=== PATIENT | female | born 1970 | race Caucasian/White ===

== ENCOUNTER 2019-07-07 21:00 | Emergency (ER) | payer MEDICAID ==
[~2019-07-07] VITALS: Ht 157.5 cm; Wt 58.1 kg
--- NOTE | 2019-07-07 21:05 | ED.ADGEN ---
Past History Past Medical History: Alcoholism, Anxiety, Bipolar, Depression, Other Smoking: Cigarettes Adult General Chief Complaint Chief Complaint "... I moved my encounter my mother.... And we are not getting along I'm not getting along my older son lives with her mother... I started drinking enteral heavily and having suicidal thoughts... Thoughts that I will hurt my mother... I have a long history depression and some previous suicide attempts... I was thinking about taking an overdose of aspirin tonight... HPI HPI Patient is a 48 year old female who presents with above hx and complaints depression, anxiety, suicidal ideation. Patient admits to drinking alcohol heavily tonight. Patient has had multiple hospital admissions for suicidal ideation and depression. Has had problems since age teenager. Patient denies any legal problems. Patient denies any change in her psych meds. Patient has followed at the [facility] for counseling and treatment of her chronic depression and anxiety. Review of Systems Review of Systems Constitutional: Denies fever or chills [] Eyes: Denies change in visual acuity, redness, or eye pain [] HENT: Denies nasal congestion or sore throat [] Respiratory: Denies cough or shortness of breath [] Cardiovascular: No additional information not addressed in HPI [] GI: Denies abdominal pain, nausea, vomiting, bloody stools or diarrhea [] : Denies dysuria or hematuria [] Musculoskeletal: Denies back pain or joint pain [] Integument: Denies rash or skin lesions [] Neurologic: Denies headache, focal weakness or sensory changes [] Endocrine: Denies polyuria or polydipsia [] All other systems were reviewed and found to be within normal limits, except as documented in this note. Family History Family History Noncontributory Current Medications Current Medications Current Medications Medications (Trade) Dose Ordered Sig/Geremias Start Time Stop Time Status Last Admin Dose Admin Lactated Ringer's 1,000 ml @ 1,000 mls/hr Q1H 07/07/19 21:30 07/07/19 22:29 DC 07/07/19 22:22 1,000 MLS/HR Multivitamins/ Minerals 10 ml/ Folic Acid 1 mg/ Thiamine HCl 100 mg/Lactated Ringer's 1,011.2 ml @ 1,011.2 mls/hr 1X ONCE 07/07/19 22:00 07/07/19 22:59 DC 07/07/19 22:22 1,011.2 MLS/HR Allergies Allergies Allergies Coded Allergies Type Severity Reaction Last Updated Verified No Known Drug Allergies 07/07/19 No Physical Exam Physical Exam Constitutional: In acute emotional distress, appears intoxicated. HENT: Normocephalic, atraumatic, bilateral external ears normal, oropharynx moist, no oral exudates, nose normal. []Poor dentition. Eyes: PERRLA, EOMI, conjunctiva normal, no discharge. Glasses Neck: Normal range of motion, no tenderness, supple, no stridor. [] Cardiovascular: Tachycardia Heart rate regular rhythm, no murmur [] Lungs & Thorax: Bilateral breath sounds equal at apexes with a few scattered w heezes on auscultation [] Abdomen: Bowel sounds normal, soft, no tenderness, no masses, no pulsatile masses. [] Skin: Warm, dry, no erythema, no rash. [] Back: No tenderness, no CVA tenderness. [] Extremities: No tenderness, no cyanosis, no clubbing, ROM intact, no edema. [] Neurologic: Alert and oriented X 3, normal motor function, normal sensory function, no focal deficits noted. []DTRs +2 patella and brachial. Slightly wide gait. Slightly dizziness coordinated Psychologic: Affect anxious, judgement normal, mood depressed Current Patient Data Vital Signs Vital Signs Date Time Temp Pulse Resp B/P (MAP) Pulse Ox O2 Delivery O2 Flow Rate FiO2 07/08/19 03:32 72 18 142/90 (107) 95 Room Air 07/07/19 21:10 97.6 Lab Results Laboratory Tests Test 07/07/19 21:50 07/07/19 22:13 White Blood Count 9.0 x10^3/uL (4.0-11.0) Red Blood Count 4.46 x10^6/uL (3.50-5.40) Hemoglobin 13.8 g/dL (12.0-15.5) Hematocrit 40.7 % (36.0-47.0) Mean Corpuscular Volume 91 fL (79-100) Mean Corpuscular Hemoglobin 31 pg (25-35) Mean Corpuscular Hemoglobin Concent 34 g/dL (31-37) Red Cell Distribution Width 13.4 % (11.5-14.5) Platelet Count 391 x10^3/uL (140-400) Neutrophils (%) (Auto) 38 % (31-73) Lymphocytes (%) (Auto) 53 % (24-48) H Monocytes (%) (Auto) 6 % (0-9) Eosinophils (%) (Auto) 2 % (0-3) Basophils (%) (Auto) 1 % (0-3) Neutrophils # (Auto) 3.4 x10^3uL (1.8-7.7) Lymphocytes # (Auto) 4.8 x10^3/uL (1.0-4.8) Monocytes # (Auto) 0.5 x10^3/uL (0.0-1.1) Eosinophils # (Auto) 0.2 x10^3/uL (0.0-0.7) Basophils # (Auto) 0.1 x10^3/uL (0.0-0.2) Prothrombin Time 9.8 SEC (9.4-11.4) Prothrombin Time INR 0.9 (0.9-1.1) Activated Partial Thromboplast Time 25 SEC (23-33) Urine Collection Type Unknown Urine Color Yellow Urine Clarity Clear Urine pH 6.0 Urine Specific [place] <=1.005 Urine Protein Neg (NEG-TRACE) Urine Glucose (UA) Neg mg/dL (NEG) Urine Ketones (Stick) Neg mg/dL (NEG) Urine Blood Neg (NEG) Urine Nitrite Neg (NEG) Urine Bilirubin Neg (NEG) Urine Urobilinogen Dipstick 0.2 mg/dL (0.2 mg/dL) Urine Leukocyte Esterase Neg (NEG) Urine RBC Occ /HPF (0-2) Urine WBC 1-4 /HPF (0-4) Urine Squamous Epithelial Cells Few /LPF Urine Transitional Epithelial Cells Few /LPF Urine Bacteria 0 /HPF (0-FEW) Sodium Level 136 mmol/L (136-145) Potassium Level 3.8 mmol/L (3.5-5.1) Chloride Level 98 mmol/L (98-107) Carbon Dioxide Level 21 mmol/L (21-32) Anion Gap 17 (6-14) H Blood Urea Nitrogen 6 mg/dL (7-20) L Creatinine 0.8 mg/dL (0.6-1.0) Estimated GFR (Cockcroft-Gault) 77.2 Glucose Level 89 mg/dL (70-99) Calcium Level 8.5 mg/dL (8.5-10.1) Magnesium Level 1.9 mg/dL (1.8-2.4) Total Bilirubin 0.1 mg/dL (0.2-1.0) L Direct Bilirubin 0.1 mg/dL (0.0-0.2) Aspartate Amino Transferase (AST) 24 U/L (15-37) Alanine Aminotransferase (ALT) 26 U/L (14-59) Alkaline Phosphatase 41 U/L (46-116) L Troponin I Quantitative < 0.017 ng/mL (0-0.055) Total Protein 6.6 g/dL (6.4-8.2) Albumin 3.5 g/dL (3.4-5.0) Lipase 482 U/L (73-393) H Salicylates Level 2.5 mg/dL (2.8-20.0) L Salicylate Last Dose Date Unknown Salicylate Last Dose Time Unknown Urine Opiates Screen Neg (NEG) Urine Methadone Screen Neg (NEG) Acetaminophen Level < 2 mcg/mL (10-30) L Acetaminophen Last Dose Date Unknown Acetaminophen Last Dose Time Unknown Urine Barbiturates Neg (NEG) Urine Phencyclidine Screen Neg (NEG) Urine Amphetamine/Methamphetamine Neg (NEG) Urine Benzodiazepines Screen Neg (NEG) Urine Cocaine Screen Neg (NEG) Urine Cannabinoids Screen Neg (NEG) Ethyl Alcohol Level 149 mg/dL (0-10) H Urine Ethyl Alcohol Pos (NEG) POC Urine HCG, Qualitative hcg negative (Negative) EKG EKG My interpretation EKG shows a sinus rhythm at 93 bpm. No acute morphology[] Radiology/Procedures Radiology/Procedures [][place] [address] IMAGING REPORT Signed PATIENT: EMANUEL PHAM AACCOUNT: [id number] : 1970 LOCATION: ER AGE: 48 SEX: F EXAM STATUS: REG ER ORD. PHYSICIAN: HIGINIO MCMAHON MD REASON: Shortness of air, suicide.Hx smoking, meth PROCEDURE: PORTABLE CHEST 1V Study: PORTABLE CHEST 1V Indication: Shortness of air. Comparison: None. Findings: No lobar infiltrate, pleural effusion or pneumothorax. Unremarkable cardiomediastinal silhouette and hilar structures. The partially evaluated osseous structures and upper abdomen are unremarkable. Impression: No acute radiographic abnormality of the chest. Electronically signed by: MARK CASTANEDA MD (07/07/2019 10:33 PM) [facility] DICTATED AND SIGNED BY: MARK CASTANEDA MD DATE: 07/07/19 0068 CC: HIGINIO MCMAHON MD; PCP,NO ~ Course & Med Decision Making Course & Med Decision Making Pertinent Labs and Imaging studies reviewed. (See chart for details) See Tele psych. report. Still awaiting placement. 0030 hrs. Asleep. 01 22-sleeping Pt. sleeping. Dr. Simmons at [][facility] accepts pt. in transfer. 0300 hrs. Final Impression Final Impression 1. Depression 2. Suicidal ideation 3. Anxiety 4. Alcohol abuse 149 5. Mild Elevation Lipase 482 6. Mild Elevation Lymphocytes 53 Dragon Disclaimer Dragon Disclaimer This electronic medical record was generated, in whole or in part, using a voice recognition dictation system. Dragon Disclaimer This chart was dictated in whole or in part using Voice Recognition software in a busy, high-work load, and often noisy Emergency Department environment. It may contain unintended and wholly unrecognized errors or omissions. HIGINIO MCMAHON MD Jul 07, 2019 21:05
--- NOTE | 2019-07-07 21:27 | EKG ---
[address] [address] Test Date: 2019-07-07 Test Time: 21:26:02 Pat Name: EMANUEL PHAM Department: Room: Gender: F Chemist Organic: : 1970 Requested By: HIGINIO MCMAHON Order Number: [id number] Reading MD: Measurements Intervals [place] Rate: 93 P: 47 MD: 130 QRS: 81 QRSD: 88 T: 57 QT: 374 QTc: 468 Interpretive Statements SINUS RHYTHM NORMAL ECG RI6.01 No previous ECG available for comparison
[2019-07-07] MEDS ORDERED: IV RINGERS SOLUTION,LACTATED 1,000 ML IV SCH (21:30)
[2019-07-07] MEDS ORDERED: MVI, ADULT NO.4 WITH VIT K 10 ML, FOLIC ACID SYRINGE for ER 1 MG, THIAMINE INJ 100 MG i... IV ONE ×4 (22:00)
[2019-07-07 22:17] LABS: BASO # 0.1 x10^3/uL (0.0-0.2); BASO % 1 % (0-3); EOS # 0.2 x10^3/uL (0.0-0.7); EOS % 2 % (0-3); HEMATOCRIT 40.7 % (36.0-47.0); HEMOGLOBIN 13.8 g/dL (12.0-15.5); LYMPH # 4.8 x10^3/uL (1.0-4.8); LYMPH % 53 % (24-48); MEAN CORPUSCULAR HEMOGLOBIN 31 pg (25-35); MEAN CORPUSCULAR HGB CONC 34 g/dL (31-37); MEAN CORPUSCULAR VOLUME 91 fL (79-100); MONO # 0.5 x10^3/uL (0.0-1.1); MONO % 6 % (0-9); NEUT # 3.4 x10^3uL (1.8-7.7); NEUT % 38 % (31-73); PLATELET COUNT 391 x10^3/uL (140-400); RED BLOOD COUNT 4.46 x10^6/uL (3.50-5.40); RED CELL DISTRIBUTION WIDTH 13.4 % (11.5-14.5)
[2019-07-07 22:25] LABS: ETHANOL 149 mg/dL (0-10); SALIC 2.5 mg/dL (2.8-20.0)
[2019-07-07 22:32] LABS: ACETAMIN < 2 mcg/mL (10-30)
--- NOTE | 2019-07-07 22:36 | RAD ---
Study: PORTABLE CHEST 1V Indication: Shortness of air. Comparison: None. Findings: No lobar infiltrate, pleural effusion or pneumothorax. Unremarkable cardiomediastinal silhouette and hilar structures. The partially evaluated osseous structures and upper abdomen are unremarkable. Impression: No acute radiographic abnormality of the chest. Electronically signed by: MARK CASTANEDA MD (07/07/2019 10:33 PM) [facility]
[2019-07-07 22:40] LABS: BARBITURATES NEG (NEG); BENZODIAZEPINES NEG (NEG); CANNABINOIDS NEG (NEG); COCAINE NEG (NEG); METHADONE NEG (NEG); OPIATES NEG (NEG); PHENCYCLIDINE NEG (NEG)
[2019-07-07 22:41] LABS: AMPHETAMINE/METHAMPHETAMINE NEG (NEG)
[2019-07-07 22:43] LABS: ALBUMIN 3.5 g/dL (3.4-5.0); CALCIUM 8.5 mg/dL (8.5-10.1); CREATININE 0.8 mg/dL (0.6-1.0); DIRECT BILIRUBIN 0.1 mg/dL (0.0-0.2); GFR 77.2; MAGNESIUM 1.9 mg/dL (1.8-2.4); POTASSIUM 3.8 mmol/L (3.5-5.1); TOTAL BILIRUBIN 0.1 mg/dL (0.2-1.0); TOTAL PROTEIN 6.6 g/dL (6.4-8.2)
[2019-07-07 22:49] LABS: BACTERIA,URINE 0 /HPF (0-FEW); BILIRUBIN,URINE NEG (NEG); CLARITY,URINE CLEAR; COLOR,URINE YELLOW; GLUCOSE,URINE NEG (NEG); NITRITE,URINE NEG (NEG); RBC,URINE OCC /HPF (0-2); UROBILINOGEN,URINE 0.2 mg/dL (0.2 mg/dL)
[2019-07-07 22:50] LABS: SQUAMOUS EPITHELIAL CELL,UR FEW /LPF
[2019-07-08 03:32] VITALS: BP 142/90
== END 2019-07-08 03:40 | disposition short-term general hospital (02) ==
LOC: ER 21:00
DX: F41.9 Anxiety disorder, unspecified (principal); F31.9 Bipolar disorder, unspecified; F10.20 Alcohol dependence, uncomplicated; R45.851 Suicidal ideations; D72.820 Lymphocytosis (symptomatic); R79.89 Other specified abnormal findings of blood chemistry; F17.210 Nicotine dependence, cigarettes, uncomplicated; Y90.6 Blood alcohol level of 120-199 mg/100 ml
CPT/HCPCS: 36415; 71045; 80048; 80076; 80307; 80329; 81001; 81025; 83690; 83735; 84443; 84484; 85025; 85610; 85730; 93005; 96365; 99285; G0480; J7120; 82003

== ENCOUNTER 2020-01-16 18:37 | Emergency (ER) | payer SELFPAY ==
[~2020-01-16] VITALS: Ht 157.5 cm; Wt 56.8 kg
[2020-01-16] MEDS ORDERED: IV RINGERS SOLUTION,LACTATED 1,000 ML IV SCH (18:51)
--- NOTE | 2020-01-16 18:51 | PHYS DOC ---
Past History Past Medical History: Alcoholism, Anxiety, Bipolar, Depression, Other Past Surgical History: Other Additional Past Surgical Histo: WISDOM TEETH Smoking: Cigarettes Alcohol Use: Occasionally Drug Use: Marijuana, Methamphetamine, Other Adult General Chief Complaint Chief Complaint: "...I having increased thoughts of suicide... I have problems with depression ever since I was teenager and I was recently admitted to [facility]... For depression".. " I attempted suicide once before by taking Aspirin... now I keep having thoughts of [place] [address]...." [facility] HPI Patient is a 49 year old female who presents with above hx and complaints of suicidal ideation. Patient gives history of previous diagnosis of anxiety disorder, bipolar disorder and depression. Patient does have a history of alcohol abuse, marijuana and meth abuse. Patient has been drinking today but states not to excess. Patient reports a recent admission to [facility] for depression thoughts of a 1 month ago. Patient does report that is currently incarcerated and this is causing increased stress, he also relates depression over her friend who recently of lung cancer. No recent travel. No history immunosuppression. Patient denies any overdoses of meds curr ently. Pt. does admit to self medication for her mood swing with ETOH and on occasion Meth. Pt. denies any homicidal ideation. Review of Systems Review of Systems Constitutional: Denies fever or chills [] Eyes: Denies change in visual acuity, redness, or eye pain [] HENT: Denies nasal congestion or sore throat [] Respiratory: Denies cough or shortness of breath [] Cardiovascular: No additional information not addressed in HPI [] GI: Denies abdominal pain, nausea, vomiting, bloody stools or diarrhea [] : Denies dysuria or hematuria [] Musculoskeletal: Denies back pain or joint pain [] Integument: Denies rash or skin lesions [] Neurologic: Denies headache, focal weakness or sensory changes [] Endocrine: Denies polyuria or polydipsia [] All other systems were reviewed and found to be within normal limits, except as documented in this note. Family History Family History Noncontributory current presentation- patient is however evasive about family history Current Medications Current Medications See nursing for home meds Allergies Allergies Allergies Coded Allergies Type Severity Reaction Last Updated Verified No Known Drug Allergies 07/07/19 No Physical Exam Physical Exam Constitutional: Moderate emotional distress, non-toxic appearance. [] HENT: Normocephalic, atraumatic, bilateral external ears normal, oropharynx moist, no oral exudates, nose normal. [] Eyes: PERRLA, EOMI, conjunctiva normal, no discharge. [Glasses Neck: Normal range of motion, no tenderness, supple, no stridor. [] Cardiovascular:Heart rate regular rhythm, no murmur [] Lungs & Thorax: Bilateral breath sounds equal apex scattered wheezes on auscultation [] Abdomen: Bowel sounds normal, soft, no tenderness, no masses, no pulsatile masses. [] Skin: Warm, dry, no erythema, no rash. [] Back: No tenderness, no CVA tenderness. [] Extremities: No tenderness, no cyanosis, no clubbing, ROM intact, no edema. [] Neurologic: Alert and oriented X 3, normal motor function, normal sensory function, no focal deficits noted. []DTRs +2 at patella and brachial. [employer] equal. No drift. Ambulatory without problems. Psychologic: Affect anxious and depressed, judgement normal, mood normal. Does appear to have insight to her psychological state. EKG EKG I interpretation of EKG shows sinus rhythm at 70 bpm. No findings acute STEMI with contralateral changes.[] Radiology/Procedures Radiology/Procedures [] Course & Med Decision Making Course & Med Decision Making Pertinent Labs and Imaging studies reviewed. (See chart for details) Still awaiting tele-psych report 0040 hrs. Tele. Psych. report received 0130 hrs. . Pt. accepted at [facility] - Dr. Bryant accepting. Impression: 1. Suicidal ideation 2. History bipolar disorder 3. History of depression 4. History of anxiety disorder 5. History of alcohol abuse-149 tonight 6. Mild elevation leukocytosis 12.0 7. Aspirin and Tylenol levels-not toxic on initial draws salicylate 1.1 and Acet. <2 (Repeat 1.4 and < 2) 8. Tobacco and marijuana use. [] Dragon Disclaimer Dragon Disclaimer This electronic medical record was generated, in whole or in part, using a voice recognition dictation system. Departure Departure: Disposition: 01 HOME/RESIDENCE PRIOR TO ADM Condition: STABLE Referrals: PCP,NO (PCP) Linnea Disclaimer This chart was dictated in whole or in part using Voice Recognition software in a busy, high-work load, and often noisy Emergency Department environment. It may contain unintended and wholly unrecognized errors or omissions. Dragon Disclaimer This chart was dictated in whole or in part using Voice Recognition software in a busy, high-work load, and often noisy Emergency Department environment. It may contain unintended and wholly unrecognized errors or omissions. Dragon Disclaimer This chart was dictated in whole or in part using Voice Recognition software in a busy, high-work load, and often noisy Emergency Department environment. It may contain unintended and wholly unrecognized errors or omissions. HIGINIO MCMAHON MD Jan 16, 2020 18:51
[2020-01-16 19:55] LABS: BASO # 0.1 x10^3/uL (0.0-0.2); BASO % 1 % (0-3); EOS # 0.1 x10^3/uL (0.0-0.7); EOS % 1 % (0-3); HEMATOCRIT 43.4 % (36.0-47.0); HEMOGLOBIN 14.1 g/dL (12.0-15.5); LYMPH # 3.3 x10^3/uL (1.0-4.8); LYMPH % 27 % (24-48); MEAN CORPUSCULAR HEMOGLOBIN 30 pg (25-35); MEAN CORPUSCULAR HGB CONC 33 g/dL (31-37); MEAN CORPUSCULAR VOLUME 92 fL (79-100); MONO # 0.7 x10^3/uL (0.0-1.1); MONO % 6 % (0-9); NEUT # 7.8 x10^3uL (1.8-7.7); NEUT % 66 % (31-73); PLATELET COUNT 417 x10^3/uL (140-400); RED CELL DISTRIBUTION WIDTH 14.1 % (11.5-14.5)
[2020-01-16] MEDS ORDERED: MVI, ADULT NO.4 WITH VIT K 10 ML, FOLIC ACID INJ 1 MG, THIAMINE INJ 100 MG in IV RINGER... IV ONE ×4 (20:00)
[2020-01-16 20:10] LABS: CALCIUM 8.2 mg/dL (8.5-10.1); CREATININE 0.7 mg/dL (0.6-1.0); GFR 89.7; POTASSIUM 3.8 mmol/L (3.5-5.1)
[2020-01-16 20:12] LABS: ACETAMIN < 2.0 mcg/mL (10-30); ETHANOL 149 mg/dL (0-10); SALIC 1.1 mg/dL (2.8-20.0)
[2020-01-16 20:14] LABS: ALBUMIN 3.5 g/dL (3.4-5.0); DIRECT BILIRUBIN 0.1 mg/dL (0.0-0.2); MAGNESIUM 2.1 mg/dL (1.8-2.4); TOTAL BILIRUBIN 0.3 mg/dL (0.2-1.0); TOTAL PROTEIN 6.7 g/dL (6.4-8.2)
[2020-01-16 20:14] LABS: BARBITURATES NEG (NEG); BENZODIAZEPINES NEG (NEG); CANNABINOIDS NEG (NEG); COCAINE NEG (NEG); METHADONE NEG (NEG); OPIATES NEG (NEG); PHENCYCLIDINE NEG (NEG)
[2020-01-16 20:16] LABS: AMPHETAMINE/METHAMPHETAMINE NEG (NEG)
[2020-01-16 20:29] LABS: BILIRUBIN,URINE NEG (NEG); CLARITY,URINE CLEAR; COLOR,URINE STRAW; GLUCOSE,URINE NEG (NEG); NITRITE,URINE NEG (NEG); RBC,URINE 0 /HPF (0-2); UROBILINOGEN,URINE 0.2 mg/dL (0.2 mg/dL)
[2020-01-16 20:30] LABS: BACTERIA,URINE 0 /HPF (0-FEW); SQUAMOUS EPITHELIAL CELL,UR OCC /LPF; WBC,URINE OCC /HPF (0-4)
[2020-01-16 21:14] LABS: PREG TEST PT QUAL NEGATIVE (NEG)
[2020-01-17 01:47] LABS: ACETAMIN < 2 mcg/mL (10-30); SALIC 1.4 mg/dL (2.8-20.0)
[2020-01-17 02:22] VITALS: BP 121/62
--- NOTE | 2020-01-17 17:41 | EKG ---
[address] [address] Test Date: 2020-01-16 Test Time: 19:26:09 Pat Name: EMANUEL PHAM Department: Room: Gender: F Acid Dipper: : 1970 Requested By: HIGINIO MCMAHON Order Number: [id number] Reading MD: Measurements Intervals [place] Rate: 78 P: 54 [place]: 142 QRS: 89 QRSD: 88 T: 56 QT: 372 QTc: 428 Interpretive Statements SINUS RHYTHM NO SPECIFIC ECG ABNORMALITIES RI6.01 No previous ECG available for comparison
== END 2020-01-17 02:40 | disposition short-term general hospital (02) ==
LOC: ER 18:37
DX: R45.851 Suicidal ideations (principal); F31.9 Bipolar disorder, unspecified; F41.9 Anxiety disorder, unspecified; D72.829 Elevated white blood cell count, unspecified; F10.20 Alcohol dependence, uncomplicated; F12.10 Cannabis abuse, uncomplicated; F15.10 Other stimulant abuse, uncomplicated; F17.210 Nicotine dependence, cigarettes, uncomplicated; Y90.6 Blood alcohol level of 120-199 mg/100 ml
CPT/HCPCS: 36415; 80048; 80076; 80307; 80329; 81001; 81025; 83735; 84443; 84484; 84703; 85025; 85610; 85730; 87086; 93005; 96365; 99285; G0480; J7120; 82003